=== PATIENT | male | born 1965 | race Caucasian/White ===

== ENCOUNTER → 2016-12-10 | Outpatient (CLI) | payer OTHER ==
--- NOTE | 2016-12-10 12:26 | REP ---
LEFT FOOT, FOUR VIEWS: HISTORY: Puncture wound. There is no acute fracture or dislocation. The joint spaces are normal in appearance. IMPRESSION: There is no acute fracture or dislocation. Signed by Blade Perry MD 12/10/2016 12:36 P
== END ==
LOC: M WUC 11:52
PROVIDERS: ATTEND Physician Assistant
DX: S91.332A Puncture wound without foreign body, left foot, initial encounter (principal); W18.30XA Fall on same level, unspecified, initial encounter; Y92.009 Unspecified place in unspecified non-institutional (private) residence as the place of occurrence of the external cause

== ENCOUNTER 2017-05-14 11:36 | Day surgery (SDC) | payer OTHER ==
[2017-05-14] MEDS ORDERED: PROPOFOL 200 MG/20 ML VIAL As Ordered (11:57)
[2017-05-14] MEDS ORDERED: LIDOCAINE 2% INJ 100 MG/5 ML SDV (FOR ANES.) As Ordered (11:59)
[2017-05-14] MEDS: NS 1,000 ML IV (12:00)
== END 2017-05-14 13:15 | disposition home or self-care (01) ==
LOC: M OPP 11:36
DX: Z12.11 Encounter for screening for malignant neoplasm of colon (principal); K64.8 Other hemorrhoids; G43.909 Migraine, unspecified, not intractable, without status migrainosus
CPT/HCPCS: 45378

== ENCOUNTER → 2018-02-08 | Outpatient (CLI) | payer OTHER ==
[~2018-02-08] MED LIST: ISOVUE-370 76% 100ML VIAL (Q9967) As Ordered ONE; SUMA25TA3 PO
--- NOTE | 2018-02-08 10:05 | REP ---
CT NECK WITH CONTRAST: HISTORY: Neck mass. CONTRAST: Isovue 370, 75 mL. A BB was placed on the left anterior neck at the level of the thyroid cartilage. The naso-, jeffrey-, and hypopharynx, larynx and subglottic trachea are normal in appearance. The salivary and thyroid glands are normal in size and density. Small lymph nodes less than 1 cm in size are present in the internal jugular chains, posterior triangles, and submandibular areas. Atherosclerotic calcification is present at the left carotid bifurcation. Minimal degenerative change is present in the cervical spine. The lung apices are clear. Minimal mucosal thickening is present in the right maxillary sinus. IMPRESSION: There is no neck mass or adenopathy. Electronically Signed by Blade Perry MD 02/08/2018 10:06 A
--- NOTE | 2018-02-09 05:08 | REP ---
Clinical: Palpable mass. Technique: Real time estrada scale and color evaluation using linear high frequency transducer. Findings: Directed ultrasound examination at the site of suspected mass left of midline anterior neck overlying the trachea demonstrates a small smooth, benign appearing protuberance of the underlying cartilage with posterior shadowing. Impression: Palpable mass corresponds to subtle protuberance of the underlying calcified structure (hyoid bone or tracheal cartilage) without obvious or significant mass findings by ultrasound. Electronically Signed by Filemon Olea MD 02/09/2018 04:59 A
== END ==
LOC: M RAD 07:21
PROVIDERS: ATTEND Surgery
DX: M50.30 Other cervical disc degeneration, unspecified cervical region (principal); R22.1 Localized swelling, mass and lump, neck
CPT/HCPCS: 70491; 76536; Q9967

== ENCOUNTER → 2018-04-20 | Outpatient (REF) | payer OTHER ==
[~2018-04-20] MED LIST changes: -ISOVUE-370 76% 100ML VIAL (Q9967) As Ordered ONE
[2018-04-21 09:59] LABS: HEPATITIS A ANTIBODY IGM NEGATIVE (NEGATIVE); HEPATITIS B CORE ANTIBODY IGM NEGATIVE (NEGATIVE); HEPATITIS B SURFACE ANTIGEN NEGATIVE (NEGATIVE); HEPATITIS C VIRUS ABY INDEX < 0.0 INDEX (<0.8)
== END ==
LOC: M LAB REF 17:48
PROVIDERS: ATTEND Nurse Practitioner Adult Health
DX: R74.8 Abnormal levels of other serum enzymes (principal)

== ENCOUNTER → 2018-06-11 | Outpatient (REF) | payer OTHER | LOC: M LAB REF 15:56 | PROVIDERS: ATTEND Otolaryngology | DX: R22.1 Localized swelling, mass and lump, neck (principal) ==

== ENCOUNTER → 2022-02-03 | Outpatient (CLI) | payer OTHER | LOC: M RAD 10:19 | PROVIDERS: ATTEND Nurse Practitioner Adult Health | DX: R74.01 Elevation of levels of liver transaminase levels (principal) ==

== ENCOUNTER → 2024-04-07 | Outpatient (REF) | payer OTHER ==
[2024-04-07 19:09] LABS: HEMATOCRIT 45.7 % (42.0-52.0)
[2024-04-07 19:43] LABS: IRON (FE) 98 UG/DL (65-175); PERCENT SATURATION 35.1 % (19.7-50.0); TOTAL IRON BINDING CAPACITY 279 UG/DL (250-425)
[2024-04-07 19:45] LABS: FERRITIN 618.7 NG/ML (10.5-307.3)
[2024-04-07 19:57] LABS: HEPATITIS B SURFACE ANTIGEN NEGATIVE (NEGATIVE)
[2024-04-07 20:19] LABS: HEPATITIS B CORE ANTIBODY IGM NEGATIVE (NEGATIVE); HEPATITIS C VIRUS ABY INDEX 0.11 INDEX (<0.8)
== END ==
LOC: M LAB REF 17:34
PROVIDERS: ATTEND Physician Assistant Medical
DX: R74.01 Elevation of levels of liver transaminase levels (principal)

== ENCOUNTER → 2024-04-19 | Outpatient (CLI) | payer OTHER | LOC: M PLALAB 14:23 | PROVIDERS: ATTEND Nurse Practitioner Family | DX: R97.20 Elevated prostate specific antigen [PSA] (principal) ==

== ENCOUNTER → 2024-04-22 | Outpatient (CLI) | payer OTHER | LOC: M RAD 06:21 | PROVIDERS: ATTEND Nurse Practitioner Adult Health | DX: R74.01 Elevation of levels of liver transaminase levels (principal) ==

== ENCOUNTER → 2024-05-13 | Outpatient (REF) | payer OTHER | LOC: M SMT 12:38 | PROVIDERS: ATTEND Urology | DX: R97.20 Elevated prostate specific antigen [PSA] (principal) ==

== ENCOUNTER → 2024-05-20 | Outpatient (REF) | payer OTHER ==
[2024-05-20 15:55] LABS: APPEARANCE, URINE CLEAR (CLEAR); BACTERIA, URINE AUTO NEGATIVE (NEGATIVE); BILIRUBIN, URINE AUTO NEGATIVE (NEGATIVE); BLOOD, URINE BLOOD 2+ (NEGATIVE); COLOR, URINE YELLOW (YELLOW); GLUCOSE, URINE (UA) AUTO NEGATIVE (NEGATIVE); KETONE, URINE AUTO NEGATIVE (NEGATIVE); LEUKOCYTE ESTERASE, URINE AUTO TRACE (NEGATIVE); MUCUS, URINE SMALL (NEGATIVE); NITRITE, URINE AUTO NEGATIVE (NEGATIVE); PROTEIN, URINE AUTO NEGATIVE (NEGATIVE); RBC, URINE AUTO 7 /HPF (0-3); SPECIFIC GRAVITY URINE AUTO 1.021 (1.002-1.035); SQUAMOUS EPITHELIAL CELL UR AU 0 /HPF (0-6); UROBILINOGEN, URINE AUTO 0.2 mg/dL (0.0-2.0); WBC, URINE AUTO 7 /HPF (0-3)
== END ==
LOC: M SMT 15:20
PROVIDERS: ATTEND Urology
DX: R97.20 Elevated prostate specific antigen [PSA] (principal)

== ENCOUNTER → 2024-11-21 | Outpatient (CLI) | payer OTHER | LOC: M PLALAB 09:51 | PROVIDERS: ATTEND Urology | DX: R97.20 Elevated prostate specific antigen [PSA] (principal) ==